=== PATIENT | male | born 1935 | race Caucasian/White ===

== ENCOUNTER → 2017-12-06 | Outpatient (CLI) | payer OTHER | LOC: CIMAGING 08:28 | PROVIDERS: ATTEND Internal Medicine | DX: R14.0 Abdominal distension (gaseous) (principal); K76.89 Other specified diseases of liver | CPT/HCPCS: 76700-PO ==

== ENCOUNTER → 2017-12-11 | Outpatient (CLI) | payer OTHER | LOC: CIMAGING 09:14 | PROVIDERS: ATTEND Internal Medicine | DX: R63.4 Abnormal weight loss (principal); R14.0 Abdominal distension (gaseous); R93.5 Abnormal findings on diagnostic imaging of other abdominal regions, including retroperitoneum | CPT/HCPCS: 74176-PO ==

== ENCOUNTER → 2018-01-04 | Outpatient (CLI) | payer OTHER | LOC: CIMAGING 15:14 | PROVIDERS: ATTEND Internal Medicine | DX: R05 Cough (principal) | CPT/HCPCS: 71046-PO ==

== ENCOUNTER 2018-01-15 07:41 | Inpatient (IN) | payer OTHER ==
[~2018-01-15 07:41] MED LIST: cefOXitin SODIUM 2 GM in STERILE WATER INJ 21 ML IV ONE
--- NOTE | 2018-01-15 08:11 | PDHPUP ---
History & Physical Update H&P update statement: This history and physical update is based on an assessment of the patient which was completed after admission or registration (within 24 hours), but prior to the surgery/procedure. H&P update: H&P reviewed & patient examined, no change in patient's condition since H&P completed (CTA reviewed. )
[2018-01-15] MEDS ORDERED: LIDOCAINE 1% 2 ML INJ ID PRN (08:17)
[2018-01-15] MEDS ORDERED: LR 1,000 ML IV ONE (08:17)
[2018-01-15 09:05] LABS: INR 1.03 (0.83-1.16); PROTIME(PATIENT) 13.7 SEC (12.0-15.0)
[2018-01-15] MEDS ORDERED: MIDAZOLAM 2 MG/2 ML VIAL IVP ONE (09:51)
[2018-01-15] MEDS ORDERED: MIDAZOLAM 2 MG/2 ML VIAL ONE (09:52)
--- NOTE | 2018-01-15 09:53 | PDANEPAE ---
ANE History of Present Illness retropertoneal mass ANE Past Medical History - Cardiovascular History Hx Hypertension: No Hx Arrhythmias: No Hx Chest Pain: No Hx Coronary Artery / Peripheral Vascular Disease: No Hx CHF / Valvular Disease: No Hx Palpitations: No - Pulmonary History Hx COPD: No Hx Asthma/Reactive Airway Disease: No Hx Recent Upper Respiratory Infection: No Hx Oxygen in Use at Home: No Hx Sleep Apnea: No Sleep Apnea Screening Result - Last Documented: Negative Pulmonary History Comment: occasional broncitis - Neurologic History Hx Cerebrovascular Accident: No Hx Seizures: No Hx Dementia: No - Endocrine History Hx Diabetes: No Hypothyroid: Yes - Renal History Hx Renal Disorders: No - Liver History Hx Hepatic Disorders: No - Neurological & Psychiatric Hx Hx Neurological and Psychiatric Disorders: No - Cancer History Hx Cancer: No - Congenital Disorder History Hx Congenital Disorders: No - GI History Hx Gastrointestinal Disorders: Yes Gastrointestinal History Comment: reflux - Other Health History Other Health History: none - Chronic Pain History Chronic Pain: Yes (lower back) - Surgical History Prior Surgeries: 2017 right hand ANE Review of Systems Review of Systems: - Exercise capacity METS (RN): 6 METS ANE Patient History - Allergies Allergies/Adverse Reactions: No Known Allergies Allergy (Verified 01/10/18 16:21) - Home Medications Home Medications: Levothyroxine 01/10/18 [Last Taken 01/15/18] Omeprazole 01/10/18 [Last Taken 01/15/18] - NPO status NPO Since - Liquids (Date): 01/14/18 NPO Since - Liquids (Time): 19:00 NPO Since - Solids (Date): 01/14/18 NPO Since - Solids (Time): 19:00 - Smoking Hx Smoking Status: Former smoker - Family Anes Hx Family Hx Anesthesia Complications: none ANE Labs/Vital Signs - Vital Signs Blood Pressure: 167/89 Heart Rate: 83 Respiratory Rate: 16 O2 Sat (%): 96 Height: 167.64 cm Weight: 54.431 kg ANE Physical Exam - Airway Neck exam: FROM Mallampati Score: Class 1 Mouth exam: normal dental/mouth exam - Pulmonary Pulmonary: no respiratory distress - Cardiovascular Cardiovascular: regular rate and rhythym - ASA Status ASA Status: II ANE Anesthesia Plan Anesthesia Plan: general endotracheal anesthesia, epidural
[2018-01-15] MEDS ORDERED: LIDOCAINE 2% 5 ML SDV ONE (09:56)
[2018-01-15] MEDS ORDERED: DEXAMETHASONE 4 MG/ML VIAL ONE (09:56)
[2018-01-15] MEDS ORDERED: ROPIVACAINE HCL 150 MG/30 ML INJ ONE (09:56)
[2018-01-15] MEDS ORDERED: ONDANSETRON 4 MG/2 ML VIAL ONE (09:56)
[2018-01-15] MEDS ORDERED: fentaNYL 100 MCG/2 ML INJ ONE ×2 (09:56)
[2018-01-15] MEDS ORDERED: ROCURONIUM 50 MG/5 ML VIAL ONE (09:56)
[2018-01-15] MEDS ORDERED: PROPOFOL 200 MG/20 ML VIAL ONE (09:57)
[2018-01-15] MEDS: BUPIVACAINE 0.5% 30 ML SDV ONE ×2 (10:57→13:12)
[2018-01-15] MEDS ORDERED: THROMBIN (BOVINE) 20,000 UNIT SPRAY TP ONE (11:46)
[2018-01-15] MEDS ORDERED: HYDROmorphONE/DILAUDID 1 MG/ML INJ IVP PRN (12:29)
[2018-01-15] MEDS ORDERED: PROMETHAZINE HCL 25 MG/ML INJ IVP PRN (12:29)
[2018-01-15] MEDS ORDERED: DEXAMETHASONE 4 MG/ML VIAL IVP PRN (12:29)
[2018-01-15] MEDS ORDERED: fentaNYL 100 MCG/2 ML INJ IVP PRN (12:29)
[2018-01-15] MEDS ORDERED: NALOXONE HCL 0.4 MG/ML INJ IVP PRN ×2 (12:29→12:33)
[2018-01-15] MEDS ORDERED: diphenhydrAMINE 25 MG CAP PO PRN (12:33)
[2018-01-15] MEDS ORDERED: fentaNYL 2MCG/ML/BUP 0.1% RTU 100 ML EP SCH (12:33)
[2018-01-15] MEDS ORDERED: NARCOTIC DRIP BAG-TOTAL ALL TYPES EP PRN (12:33)
[2018-01-15] MEDS ORDERED: ONDANSETRON 4 MG/2 ML VIAL IVP PRN ×2 (12:33→13:53)
--- NOTE | 2018-01-15 13:37 | POSTANESTH ---
Post Anesthetic Evaluation Cardiovascular Status: Normal, Stable Respiratory Status: Normal, Stable Level of Consciousness/Mental Status: Can Participate in Eval Pain Control: Adequate, Prn Tx Ordered Nausea/Vomiting Control: Adequate, Prn Tx Ordered Complications Possibly Related to Anesthesia: None Noted
[2018-01-15] MEDS: fentaNYL 200 MCG, BUPIVACAINE 0.5% 20 ML in NS 100 ML EP SCH (13:50)
--- NOTE | 2018-01-15 14:00 | POSTOPPROG ---
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 Findings: huge tumor taking up nearly entire abdomen. R kidney involved and spared. Adherent to vena cava and involving diaphragm. 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
[2018-01-15] MEDS ORDERED: ALBUMIN 5% 500 ML BOTTLE IV ONE (16:30)
[2018-01-15] MEDS ORDERED: ALBUMIN 5% 1,000 ML IV ONE (17:00)
--- NOTE | 2018-01-15 17:23 | SOAPPROG ---
SOAP Progress Note Assessment/Plan: Assessment: Postop resection of liposarcoma coma the retroperitoneum Vital signs stable with epidural in place/urine output marginal/labs pending/ wound okay Plan: Albumin bolus 01/15/18 17:21 Objective: Vital Signs Temp Pulse Resp BP Pulse Ox 36.3 C 103 H 22 H 95/59 L 96 01/15/18 16:00 01/15/18 16:00 01/15/18 16:00 01/15/18 16:00 01/15/18 16:00 Laboratory Results 01/15/18 16:45 01/14/18 01/15/18 01/16/18 05:59 05:59 05:59 Intake Total 2900 Output Total 475 Balance 2425 PT 13.7 SEC (12.0-15.0) 01/15/18 08:35 INR 1.03 (0.83-1.16) 01/15/18 08:35 ICD10 Worksheet Patient Problems: Problems Problem Status Onset Retroperitoneal liposarcoma Acute - ICD10 Problem Qualifiers (1) Retroperitoneal liposarcoma
[2018-01-15] MEDS ORDERED: TRANEXAMIC ACID 1,000 MG in NS (SYRINGE) 50 ML IV ONE (19:00)
--- NOTE | 2018-01-15 20:05 | SOAPPROG ---
SOAP Progress Note Assessment/Plan: Assessment: called by RN, patient clinically doing well. Repeated lab draw from non IV arm. h/H appropriate. Cancelled 2nd unit of PRBC Plan: 01/15/18 20:04 Objective: Vital Signs Temp Pulse Resp BP Pulse Ox 36.5 C 100 22 H 120/63 100 01/15/18 18:00 01/15/18 18:00 01/15/18 18:00 01/15/18 18:00 01/15/18 18:00 Laboratory Results 01/15/18 19:15 01/14/18 01/15/18 01/16/18 05:59 05:59 05:59 Intake Total 3365 Output Total 645 Balance 2720 PT 13.7 SEC (12.0-15.0) 01/15/18 08:35 INR 1.03 (0.83-1.16) 01/15/18 08:35 ICD10 Worksheet Patient Problems: Problems Problem Status Onset Retroperitoneal liposarcoma Acute
[2018-01-15] MEDS: NS W/ 20 KCl/L 1,000 ML IV SCH (23:39)
[2018-01-16] MEDS: fentaNYL 200 MCG, BUPIVACAINE 0.5% 20 ML in NS 100 ML EP SCH ×3 (01:27→23:19)
[2018-01-16] MEDS: ACETAMINOPHEN 325 MG TAB PO PRN ×3 (08:12→21:07)
[2018-01-16] MEDS: DC NARCS MISC SCH (08:15)
[2018-01-16] MEDS: REGARDING ANTICOAG MISC SCH (08:15)
--- NOTE | 2018-01-16 08:26 | SOAPPROG ---
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 POD#1. Doing well. Low H&H likely due to dilution. Good pain control with epidural. Continue benedict until its removal. D/c NGT. Low output, no N/V. +BS. Start clears. D/c chest tube. No air leak. Low output. CXR ok. Repeat chest xray later today. Final pathology pending. Dispo: medsurg. S: not much pain. difficulty talking with NGT in. No SOB. Not sure if passed flatus. O: alert, nad ng in place, mmm chest: ctab, no air leak cor: rrr abd: soft, inc well dressed. +BS ext: no edema. 01/16/18 08:25 Objective: Vital Signs Temp Pulse Resp BP Pulse Ox 37.3 C 90 19 107/71 96 01/16/18 06:00 01/16/18 06:00 01/16/18 06:00 01/16/18 06:00 01/16/18 06:00 Laboratory Results 01/16/18 05:30 01/16/18 05:30 01/15/18 01/16/18 01/17/18 05:59 05:59 05:59 Intake Total 5821 Output Total 1465 Balance 4356 PT 13.7 SEC (12.0-15.0) 01/15/18 08:35 INR 1.03 (0.83-1.16) 01/15/18 08:35 ICD10 Worksheet Patient Problems: Problems Problem Status Onset Retroperitoneal liposarcoma Acute
--- NOTE | 2018-01-16 11:12 | ASMTCASEMG ---
Living Arrangements What is your living Answers: With Spouse arrangement? Who do you live with? Type Of Residence What kind of residence do Answers: House you live in? Discharge Plan Comments Coordination Status Comments Notes: Patient is a 62yo male who has a large right retroperitoneal soft mass and was admitted for a resection of the mass. No therapies have been ordered at this time. D/C needs TBD. CM will follow. Date Signed: 01/16/2018 11:11 AM Electronically Signed By:Kaylynn Thao LCSW
--- NOTE | 2018-01-16 11:54 | GOP ---
[f rep st] OPERATIVE REPORT DATE OF OPERATION: 01/16/2018 SURGEON: Asael Otto MD PREOPERATIVE DIAGNOSIS: Possible tension pneumothorax. POSTOPERATIVE DIAGNOSIS: Possible tension pneumothorax. PROCEDURE PERFORMED: Right tube thoracostomy. FINDINGS: Patient was found to have no definite evidence of a tension pneumothorax, but his blood pr essure seemed to improve after placement of a right chest tube. DESCRIPTION OF PROCEDURE: Patient was prepped and draped in the usual sterile fashion. A short inci maria luisa was made in the 7th intercostal space in the anterior axillary line. Dissection extended up ove r the rib and through the intercostal space, and the right chest was entered. There was no gush of a ir or any obvious tension pneumothorax. A #28-Paragu[place] chest tube was introduced, connected to a Pleur -Evac drainage system, and secured to the exit site with 2-0 silk suture. There was no real evidence of any air leak despite the initial concerns. He tolerated the procedure well. There were no compl ications. /[id number]/MODL
--- NOTE | 2018-01-16 12:19 | GOP ---
[f rep st] OPERATIVE REPORT DATE OF OPERATION: 01/15/2018 SURGEON: Asael Otto MD OSTOMY NURSE: Maycol Christy MD, and KATLIN Barajas. ANESTHESIA: Dee Dee Metz MD. PREOPERATIVE DIAGNOSIS: Giant retroperitoneal mass. POSTOPERATIVE DIAGNOSIS: Low-grade liposarcoma. PROCEDURE PERFORMED: Resection of a retroperitoneal mass with a partial resection of the diaphragm and closure with a right renal pexy, a right cecal pexy. FINDINGS: Patient was found to have a 15-pound massive low-grade liposarcoma of the right flank. This had pushed all the abdominal structures across the midline into the left side of the abdomen except for the liver. Tumor was attached to the diaphragm behind the liver. It was partially compressing the vena cava and iliac veins and had completely rotated the right kidney over into the left abdomen. It did not directly invade the kidney, the liver, or the vena cava DESCRIPTION OF PROCEDURE: Patient was taken to the operating room where he received satisfactory general endotracheal anesthesia by Dr. Metz. He was prepped and draped in the usual sterile fashion. A large midline abdominal incision was made and carried from the sternum down to the suprapubic area. The abdomen was carefully entered through the linea alba. The abdomen findings were as noted above. the mass was exposed by freeing the right colon off the tumor with care to preserve the blood supply and then the mass was fully exposed. The mass was then tediously and carefully mobilized starting laterally; it was freed up as much as possible from the lateral abdominal wall and retroperitoneum ; dissected away from the adherence to the liver and gallbladder. It was dissected up out of the pelvis, as well, with care to avoid injury to the iliac vessels and was dissected up off the psoas muscle. This was all done with electrocautery and with the Harmonic Scalpel. The right kidney was then identified and was adherent to the mass, but not invaded by the mass. Gerota fascia over the kidney was removed, allowing the kidney to drop away from this mass, with preservation of the ureter and the vascularity to the renal hilum. The mass was then dissected up along the lateral border of the spine and along the lateral border of the vena cava. The right adrenal gland was identified and spared from removal. The dissection extended up underneath the liver to the diaphragm. Hemostasis was carefully obtained everywhere with 2-0 Vicryl ties, the Harmonic Scalpel, and electrocautery. At the diaphragm, the mass was removed with a piece of diaphragm until the entire mass could be removed. The diaphragm was then closed with a running #1 PDS suture, and a 28 chest tube was placed through this incision. The patient was Valsalva'd with evacuation of some air from the chest as the tube was removed and the sutures were tied down. Hemostasis was carefully obtained. The wound was copiously irrigated. Blood loss from the procedure was less than 200 cc. There were no complications. After removing this giant mass, which weighed nearly 15 pounds and measured over 40 cm, the abdominal contents were allowed to go back to their more natural position. The right kidney was pexed to adjacent tissues in the retroperitoneum to try to prevent any torsion of the kidney, and the right colon was pexed over the lateral abdominal wall to put it back into its normal position. The remainder of the abdominal contents were examined with no evidence of any metastatic disease or other findings. Abdomen was then closed using a running #1 PDS suture for the linea alba, reinforced periodically with # 1 Vicryl interrupted sutures. The skin was closed with skin cheri. He tolerated the procedure well. There were no complications Blood loss was less than 200 cc. /[id number]/MODL MTDD
--- NOTE | 2018-01-16 14:13 | SOAPPROG ---
SOAP Progress Note Assessment/Plan: Assessment: Postop resection of liposarcoma coma the retroperitoneum Vital signs stable with epidural in place/urine output marginal/labs pending/ wound okay Plan: Albumin bolus 01/15/18 17:21 01/16/18 14:11 Vital signs stable/afebrile/doing very well Abdomen soft, nontender/wound okay/decreased bowel sounds Hematocrit stable Urine output improved/no air leak on the chest tube/minimal NG output Plan DC NG and chest tube in transfer to [facility] Objective: Vital Signs Temp Pulse Resp BP Pulse Ox 37.3 C 90 19 107/71 96 01/16/18 06:00 01/16/18 06:00 01/16/18 06:00 01/16/18 06:00 01/16/18 06:00 Laboratory Results 01/16/18 05:30 01/16/18 05:30 01/15/18 01/16/18 01/17/18 05:59 05:59 05:59 Intake Total 5821 Output Total 1465 Balance 4356 PT 13.7 SEC (12.0-15.0) 01/15/18 08:35 INR 1.03 (0.83-1.16) 01/15/18 08:35 ICD10 Worksheet Patient Problems: Problems Problem Status Onset Retroperitoneal liposarcoma Acute - ICD10 Problem Qualifiers (1) Retroperitoneal liposarcoma
[2018-01-16 23:50] LABS: PLATELET COUNT 111 10^3/uL (150-400)
[2018-01-17] MEDS: NS W/ 20 KCl/L 1,000 ML IV SCH ×3 (05:01→20:53)
--- NOTE | 2018-01-17 09:38 | SOAPPROG ---
SOAP Progress Note Assessment/Plan: Assessment: Postop resection of liposarcoma coma the retroperitoneum Vital signs stable with epidural in place/urine output marginal/labs pending/ wound okay Plan: Albumin bolus 01/15/18 17:21 01/16/18 14:11 Vital signs stable/afebrile/doing very well Abdomen soft, nontender/wound okay/decreased bowel sounds Hematocrit stable Urine output improved/no air leak on the chest tube/minimal NG output Plan DC NG and chest tube in transfer to [facility] 01/17/18 09:34 VS STABLE BUT TEMP 101 LAST PM/ AFEBRILE NOW/ ABD SOFT, MINIMALLY TENDER/ WOUND OK/ UO OK/ HCT STABLE Objective: Vital Signs Temp Pulse Resp BP Pulse Ox 36.8 C 84 18 118/59 L 99 01/17/18 07:34 01/17/18 07:34 01/17/18 07:34 01/17/18 07:34 01/17/18 07:34 Laboratory Results 01/16/18 23:40 01/16/18 23:40 01/16/18 01/17/18 01/18/18 05:59 05:59 05:59 Intake Total 5821 3456 Output Total 1465 2100 Balance 4356 1356 PT 13.7 SEC (12.0-15.0) 01/15/18 08:35 INR 1.03 (0.83-1.16) 01/15/18 08:35 ICD10 Worksheet Patient Problems: Problems Problem Status Onset Retroperitoneal liposarcoma Acute - ICD10 Problem Qualifiers (1) Retroperitoneal liposarcoma
[2018-01-17] MEDS ORDERED: BISACODYL 10 MG SUPP PR PRN (09:39)
[2018-01-17] MEDS: REGARDING ANTICOAG MISC SCH (09:53)
[2018-01-17] MEDS: DC NARCS MISC SCH (09:53)
--- NOTE | 2018-01-17 11:13 | ASMTCMCOM ---
CM Note CM Note Notes: OT/PT have been ordered for the patient. Awaiting results of evals to determine d/c plan. CM will follow. Date Signed: 01/17/2018 11:13 AM Electronically Signed By:Kaylynn Thao LCSW
[2018-01-17] MEDS: METOCLOPRAMIDE 10 MG/2 ML VIAL IVP SCH ×3 (11:19→23:11)
[2018-01-17] MEDS: HEPARIN 5,000 UNIT/0.5 ML SYR SC SCH ×2 (13:25→20:54)
[2018-01-17] MEDS: fentaNYL 200 MCG, BUPIVACAINE 0.5% 20 ML in NS 100 ML EP SCH (13:29)
--- NOTE | 2018-01-17 15:57 | POSTANESTH ---
Post Anesthetic Evaluation Cardiovascular Status: Normal, Stable Respiratory Status: Normal, Stable Level of Consciousness/Mental Status: Can Participate in Eval Pain Control: Inadeq, Add Tx Required Nausea/Vomiting Control: Adequate, Prn Tx Ordered Notes: Called to see patient for epidural pump malfunction (occlusion alarm). Epidural flushed easily with NS sterile. Then a 10 ml bolus of 0.25 bupicaine given for increased pain and basal rate increased to 8 ml/hr.
--- NOTE | 2018-01-17 21:11 | GCON ---
[f rep st] CONSULTATION ONCOLOGY CONSULT REFERRING PHYSICIAN: Asael Otto MD REASON FOR REQUEST: Liposarcoma. HISTORY OF PRESENT ILLNESS: Mr. Srivastava is an 82-year-old, previously healthy gentleman who over the last 4 years has noted an increasing abdominal girth. He had no pain, nausea, vomiting, and he has been very active. He may have been having a little more trouble taking a deep breath and was having early satiety. CT scan was performed that showed a large abdominal mass that appeared to be a fat containing tumor that was displacing the right kidney to the left side of the abdomen. He underwent surgical resection and is slowly recovering. Still not passing gas, been able to eat yet. His , who is also a physician, is with him. His pain is under good control. ALLERGIES: No known drug allergies. HOME MEDICATIONS: Included omeprazole and levothyroxine. CHRONIC ILLNESSES: Includes hypothyroidism and gastroesophageal reflux. SURGICAL HISTORY: Includes inguinal hernia repair and Dupuytren's surgery on his hands. SOCIAL HISTORY: Drinks alcohol occasionally, does not smoke, use illicit drugs. He is . 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 FAMILY HISTORY: They have 2 children in good health. Mother at age 92. Father age 62 with an CA. No history of cancer in the family. REVIEW OF SYSTEMS: 10-point review of systems performed. Pertinent positives HPI, otherwise negative. PHYSICAL EXAM: VITAL SIGNS: Temperature is 36.8, pulse 100, blood pressure 136 /67. GENERAL: He is a well-appearing elderly man in no distress. HEENT: Unremarkable. LUNGS: Clear. CARDIAC: Regular. ABDOMEN: Mildly distended, soft. Bowel sounds are decreased. Midline incision shows no signs of infection. NEUROLOGIC: Grossly intact. RADIOLOGY: Abdominal x-ray today showed a moderately diffuse distention of small bowel loops, suggestive of ileus. Abdominal CT, which I reviewed with the radiologist, showed low-grade retroperitoneal liposarcoma versus benign lipoma versus gigantic renal myelolipoma. It measured 26 x 24 x 24 cm. Pathology showed a well-differentiated liposarcoma/atypical lipomatous tumor. Margins were likely involved, but no evidence of dedifferentiation. The greatest dimension is 33 cm. The mitotic rate was near 0, grade 1. It was staged as a T4 N0. IMPRESSION: Large liposarcoma, surgically resected: This appears to be low risk and has been slowly growing probably for a while. Using the online nomogram for retroperitoneal soft tissue sarcoma he has probably about IMPRESSION AND PLAN: Well-differentiated liposarcoma, surgically resected. The online nomogram through [facility] estimates about a 50%, 7 year overall survival from this. The margins probably are positive and adjuvant radiation may lower the risk of local recurrence, but does not appear to have much of an effect on overall survival. Right now there is not a clear role for adjuvant chemotherapy in this situation. I can look to see if there is any study that may be available, but the patient keeps reporting that he is years old and does not want to be really aggressive. RECOMMENDATION: I would like to follow him up in about 1-2 weeks to review the final path and determine a followup going forward. I appreciate seeing him in consultation. /[id number]/MODL and [id number]/MODL [facility]ITAL[facility]
[2018-01-18] MEDS: fentaNYL 200 MCG, BUPIVACAINE 0.5% 20 ML in NS 100 ML EP SCH (01:58)
[2018-01-18] MEDS: NS W/ 20 KCl/L 1,000 ML IV SCH ×3 (04:52→23:36)
[2018-01-18] MEDS: HEPARIN 5,000 UNIT/0.5 ML SYR SC SCH ×3 (06:19→23:38)
[2018-01-18] MEDS: METOCLOPRAMIDE 10 MG/2 ML VIAL IVP SCH ×3 (06:20→17:04)
--- NOTE | 2018-01-18 07:43 | SOAPPROG ---
SOAP Progress Note Assessment/Plan: Assessment: S/p resection of liposarcoma of the retroperitoneum 01/15 S: Doing well today. Passing some flatus and small bowel movements. O: Alert NAD Low grade fever: 99.6 H&H stable Abdomen: soft, hypoactive bowel sounds. Some tenderness Chest xray yesterday shows some atelectasis Plan: Plan to remove epidural catheter today. D/c benedict as well. Get OOB with PT. Start clear liquids, then advance as tolerated. Continue using IS regularly. 01/18/18 07:44 Objective: Vital Signs Temp Pulse Resp BP Pulse Ox 37.6 C 93 16 129/62 H 95 01/17/18 23:07 01/17/18 23:07 01/17/18 23:07 01/17/18 23:07 01/17/18 23:07 Laboratory Results 01/16/18 23:40 01/16/18 23:40 01/17/18 01/18/18 01/19/18 05:59 05:59 05:59 Intake Total 3456 4084 Output Total 2100 1400 Balance 1356 2684 PT 13.7 SEC (12.0-15.0) 01/15/18 08:35 INR 1.03 (0.83-1.16) 01/15/18 08:35 ICD10 Worksheet Patient Problems: Problems Problem Status Onset Retroperitoneal liposarcoma Acute
--- NOTE | 2018-01-18 08:45 | SOAPPROG ---
SOAP Progress Note Assessment/Plan: Assessment: Postop resection of liposarcoma coma the retroperitoneum Vital signs stable with epidural in place/urine output marginal/labs pending/ wound okay Plan: Albumin bolus 01/15/18 17:21 01/16/18 14:11 Vital signs stable/afebrile/doing very well Abdomen soft, nontender/wound okay/decreased bowel sounds Hematocrit stable Urine output improved/no air leak on the chest tube/minimal NG output Plan DC NG and chest tube in transfer to [facility] 01/17/18 09:34 VS STABLE BUT TEMP 101 LAST PM/ AFEBRILE NOW/ ABD SOFT, MINIMALLY TENDER/ WOUND OK/ UO OK/ HCT STABLE 01/18/18 08:43 AFEBRILE/ WOUND OK/ ABD SOFT/ VS STABLE/ +FLATUS AND SMALL BM/ 2-WAY= ILEUS/ CXR= ATELECTASIS PLAN CLEARS AND ADVANCE Objective: Vital Signs Temp Pulse Resp BP Pulse Ox 37.3 C 81 24 H 102/52 L 94 01/18/18 08:00 01/18/18 08:00 01/18/18 08:00 01/18/18 08:00 01/18/18 08:00 Laboratory Results 01/16/18 23:40 01/16/18 23:40 01/17/18 01/18/18 01/19/18 05:59 05:59 05:59 Intake Total 3456 4084 Output Total 2100 1400 Balance 1356 2684 PT 13.7 SEC (12.0-15.0) 01/15/18 08:35 INR 1.03 (0.83-1.16) 01/15/18 08:35 ICD10 Worksheet Patient Problems: Problems Problem Status Onset Retroperitoneal liposarcoma Acute - ICD10 Problem Qualifiers (1) Retroperitoneal liposarcoma
[2018-01-18] MEDS: REGARDING ANTICOAG MISC SCH (09:00)
[2018-01-18] MEDS: DC NARCS MISC SCH (09:00)
[2018-01-18] MEDS ORDERED: morphINE PCA 30 MG/30 ML PCA IV PRN (12:04)
[2018-01-18] MEDS ORDERED: NALOXONE HCL 0.4 MG/ML INJ IVP PRN ×2 (12:04→16:25)
--- NOTE | 2018-01-18 12:12 | ASMTCMCOM ---
CM Note CM Note Notes: Patient is improving. Plan to remove epidural catheter today and d/c the benedict as well. Patient has not been ready for therapies yet, but hopefully can work with PT today. CM will follow. Date Signed: 01/18/2018 12:11 PM Electronically Signed By:Kaylynn Thao LCSW
[2018-01-18] MEDS ORDERED: HYDROmorphONE/DILAUDID 6 MG/30 ML PCA IV PRN (16:25)
--- NOTE | 2018-01-18 17:33 | CPEKG ---
Heart Rate: 160 RR Interval: 375 P-R Interval: 92 QRSD Interval: 146 QT Interval: 256 QTC Interval: 418 P [place]: 0 QRS [place]: 262 T Wave [place]: 44 EKG Severity - ABNORMAL ECG - EKG Impression: Supraventricular tachycardia with aberrancy Electronically Signed By: Sergio Patel 19-Jan-2018 07:26:37
[2018-01-18] MEDS ORDERED: ACETAMINOPHEN 650 MG SUPP PR ONE (17:42)
[2018-01-18] MEDS: ACETAMINOPHEN 325 MG TAB PO PRN (17:55)
[2018-01-18] MEDS ORDERED: IOPAMIDOL (ISOVUE-300) 100 ML BTL ONE (18:03)
[2018-01-18] MEDS ORDERED: ERTAPENEM 1 GM VIAL IV SCH (19:00)
[2018-01-18] MEDS ORDERED: DEXMEDETOMIDINE IN 0.9 % NACL 50 ML IV SCH (19:00)
--- NOTE | 2018-01-18 19:32 | SOAPPROG ---
SOAP Progress Note Assessment/Plan: Assessment: Postop resection of liposarcoma coma the retroperitoneum Vital signs stable with epidural in place/urine output marginal/labs pending/ wound okay Plan: Albumin bolus 01/15/18 17:21 01/16/18 14:11 Vital signs stable/afebrile/doing very well Abdomen soft, nontender/wound okay/decreased bowel sounds Hematocrit stable Urine output improved/no air leak on the chest tube/minimal NG output Plan DC NG and chest tube in transfer to [facility] 01/17/18 09:34 VS STABLE BUT TEMP 101 LAST PM/ AFEBRILE NOW/ ABD SOFT, MINIMALLY TENDER/ WOUND OK/ UO OK/ HCT STABLE 01/18/18 08:43 AFEBRILE/ WOUND OK/ ABD SOFT/ VS STABLE/ +FLATUS AND SMALL BM/ 2-WAY= ILEUS/ CXR= ATELECTASIS PLAN CLEARS AND ADVANCE 01/18/18 19:29 Developed severe abdominal pain tonight after discontinuation is epidural resulting in tachycardia and hypertension/WBC is normal/hematocrit stable Emergency CT scan done shows some residual free air as we have seen on his x- rays, right pleural effusion and atelectasis and ileus as we have seen on his x- rays No obvious abdominal crises, both kidneys are functioning perfectly but his colon and small bowel are very distended Will replace Finn and NG and start Precedex drip to supplement his pain control /check lactic acid/monitor his temperature and tachycardia Laparotomy if not improving but I think this is all a serous pain reaction to a gigantic incision and the discontinuation of his epidural pain relief/will follow closely Objective: Vital Signs Temp Pulse Resp BP Pulse Ox 103.3 C H 138 H 33 H 136/59 H 95 01/18/18 18:29 01/18/18 18:29 01/18/18 18:29 01/18/18 18:29 01/18/18 18:29 Laboratory Results 01/18/18 17:35 01/18/18 17:35 01/17/18 01/18/18 01/19/18 05:59 05:59 05:59 Intake Total 3456 4084 1476 Output Total 2100 1400 725 Balance 1356 2684 751 PT 13.7 SEC (12.0-15.0) 01/15/18 08:35 INR 1.03 (0.83-1.16) 01/15/18 08:35 ICD10 Worksheet Patient Problems: Problems Problem Status Onset Retroperitoneal liposarcoma Acute - ICD10 Problem Qualifiers (1) Retroperitoneal liposarcoma
[2018-01-18] MEDS ORDERED: BISACODYL 10 MG SUPP PR PRN (21:28)
[2018-01-18] MEDS ORDERED: fentanYL/NACL/100 ML BAG IV ONE (23:59)
[2018-01-19] MEDS ORDERED: PROPOFOL/EMULSION 1,000 MG/100 ML BOTTLE IV ONE
[2018-01-19] MEDS ORDERED: fentaNYL/NACL 100 ML IV SCH ×2 (00:06→00:30)
[2018-01-19] MEDS ORDERED: PROPOFOL/EMULSION 100 ML IV SCH ×2 (00:06→00:30)
[2018-01-19] MEDS ORDERED: VANCOMYCIN 1 GM in NS 250 ML IV ONE (00:15)
[2018-01-19] MEDS ORDERED: MIDAZOLAM 2 MG/2 ML VIAL ONE (00:24)
[2018-01-19] MEDS ORDERED: fentaNYL 100 MCG/2 ML INJ ONE (00:25)
[2018-01-19] MEDS ORDERED: ETOMIDATE 40 MG/20 ML INJ ONE (00:25)
[2018-01-19] MEDS ORDERED: ETOMIDATE 40 MG/20 ML INJ IV ONE (00:30)
[2018-01-19] MEDS ORDERED: fentaNYL 100 MCG/2 ML INJ IVP ONE (00:30)
[2018-01-19] MEDS ORDERED: MIDAZOLAM 2 MG/2 ML VIAL IVP ONE ×2 (00:30→00:35)
[2018-01-19] MEDS ORDERED: ALTEPLASE 2 MG VIAL IVP PRN (00:31)
[2018-01-19] MEDS: METOCLOPRAMIDE 10 MG/2 ML VIAL IVP SCH (00:46)
[2018-01-19] MEDS ORDERED: NOREPINEPHRINE BITARTRATE 4 MG in D5W 500 ML IV SCH (01:30)
[2018-01-19] MEDS ORDERED: NOREPINEPHRINE BITARTRATE 4 MG in D5W 500 ML IV PRN (01:30)
[2018-01-19 04:05] VITALS: BP 125/76; PULSE 105; RESP 28; TEMP 102.6; O2SAT 97
[2018-01-19] MEDS ORDERED: ATROPINE SULFATE 1 MG/10 ML SYR ONE (04:35)
--- NOTE | 2018-01-19 06:58 | GCON ---
[f rep st] CONSULTATION CRITICAL CARE CONSULTATION DATE OF CONSULTATION: 01/19/2018 HISTORY OF PRESENT ILLNESS: This patient is an 82-year-old male with a history of reflux disease, hy pothyroidism, and benign prostatic hypertrophy, who presented to his outpatient PCP with increasing a bdominal girth over several months to potentially years. 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 He was seen by Dr. 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 The surgery itself was fairly uncomplicated though there was involvement of the right hem idiaphragm requiring a chest tube for in the immediate period. He otherwise did quite well. His epi dural catheter was removed today, and his status was downgraded to Med/Surg. In any case, his blood pressure was quite high following the removal of the catheter and pain control was somewhat difficult ,. Complicating the situation was that his oxygen saturation was normal on only 2 L nasal cannula thi s morning and about 5:30 this evening, it jumped up to a 15 L non-rebreather. He continued to have s evere pain and was evaluated by Dr. Otto. An abdominal CT scan revealed postoperative changes. The re is free air, but he thought this was proportional to his recent surgery. His lactate level was 1. 5 and his hematocrit was stable in the upper 30s. I was called shortly before this dictation because of worsening oxygen saturation and respiratory rate. He was breathing about 45 times per minute, wa s awake and did squeeze my hand, but was nonverbal and really was quite tachypneic. His was at the bedside asking many questions throughout the exam. I was quite concerned about pain control. He had started a Precedex drip about 2 hours before I had gotten here, which had little effect on his p ain and shortly after my arrival, his blood pressure did drop to about 60/40. This recovered quickly with a small amount of IV fluids, which is still running at this time. A blood gas showed a pH 7.5 with a pCO2 of about 20 with a pO2 of about 70, but a bicarb of 17. This was 22 earlier in the day. His lactate had gone up now to 2.7. REVIEW OF SYSTEMS: Otherwise noncontributory. PAST MEDICAL HISTORY: Gastroesophageal reflux disease, Dupuytren's contractures, hyperlipidemia, hyp othyroidism, BPH, and vitamin D deficiency. PAST SURGICAL HISTORY: Prostate surgery, hand surgery and hernia repair, and the most recent liposar coma resection. FAMILY HISTORY: Coronary artery disease. SOCIAL HISTORY: Remote tobacco. CURRENT MEDICATIONS: Tylenol Dulcolax, Precedex, Benadryl, Invanz, subcu heparin, Dilaudid FRONT DESK MONITOR, Regl an, Zofran and normal saline with 20 potassium. PHYSICAL EXAMINATION: VITAL SIGNS: On my arrival, his T-max was 39.7, that was about 1745, T-curren t 39.4, with a blood pressure about 93/49, heart rate of 132, it looks like sinus tachycardia, it is hard to tell. Respirations about 40. Oxygen saturation was 90% to 91% on a 100% non-rebreather as w ell as nasal cannula at 6 L/minute. GENERAL: He was a thin and somewhat cachectic appearing with his eyes closed. He followed commands but was nonverbal and clearly in moderate to severe respiratory d istress. Pupils were equally round and reactive to light. Nonicteric and noninjected. Mucous membra kailey were moist. He had an NG tube in place. NECK: Supple without obvious adenopathy or jugular vei n distention. LUNGS: Breath sounds were diminished but clear to auscultation bilaterally without whee zes, rubs or rales. CARDIAC: Heart appeared to have a regular rate and rhythm without murmurs, rubs, gallops. ABDOMEN: Abdomen was markedly distended and firm and very tender to touch, even with the stethoscope, with no bowel tones. His midline incision dressing was clean and dry, without evidence of leak or bleed. EXTREMITIES: Extremities show no clubbing, cyanosis, or edema. NEUROLOGIC: Nonfoc al, including cranial nerves. SKIN: Warm and dry without diaphoresis or rash. OBJECTIVE DATA: White count of 4.86. This was drawn at 1735, which dropped from 10.1 on 01/16. Hem atocrit has been stable and is now 38. Platelets were drawn also at 1735 and were 162. Blood gas was 7.51, pCO2 21, pO2 76, bicarb 17, oxygen saturation 97% with a base excess amount of 0.42 and a lact ate of 2.7. That was on a venous blood gas 1.5 at 1926 earlier. His basic metabolic panel was fairly unremarkable save for a potassium of 5.0. LFTs were normal. Albumin was 2.6. Chest x-ray shows atelectasis with some right-sided effusion, free air to the bilateral diaphragms. ASSESSMENT AND PLAN: 1. Hypoxic respiratory failure. Though he does have respiratory alkalosis, which certainly would be consistent with his significant pain since the loss of his epidural cathete, the amount of oxygen to maintain a pO2 of 76 is excessive and his respiratory rate is unacceptable. I think that he is very likely to have a respiratory arrest if we do not intervene at this time. Subsequently, he was intub ated on the first attempt using a GlideScope and a 7.5 endotracheal tube. This is dictated separatel y. We maintained his oxygen saturation throughout. I think the likelihood of pulmonary embolism is very, very low since he has been on subcu heparin as well as SCDs. I do not see evidence of pneumoni a, though I am quite concerned about the high fever and what appears to be atelectasis and mild effus ion on the right side. I do not think he has an underlying lung disease, so they do not think bronch odilators would be useful nor do I think bronchoscopy would as well. At this point, from a respirato ry status, just maintain him on the ventilator. Recheck a chest x-ray to make sure the tube is in go od position. 2. Peritonitis. The high fever is quite concerning to me as is the rising lactate. Dr. Otto is aw are of this. I spoke to him myself earlier. His hematocrit is quite stable. It is possible there i s perforation. I gave him a dose of vancomycin in addition to the Invanz. We will check some blood cultures and keep a close eye on his blood pressure. He may need central access in the near future. We will also look at a bladder pressure to make sure he does not have abdominal compression syndrome . TIME SPENT: A total of 60 minutes of critical care time was required, separate from procedures, in t he evaluation and management of this patient with severe illness. /[id number]/MODL
--- NOTE | 2018-01-19 06:58 | GPN ---
[f rep st] PROCEDURE NOTE DATE OF PROCEDURE: 01/19/2018 PROCEDURE PERFORMED: Emergent intubation. INDICATION: Hypoxic respiratory failure. CONSENT: Consent was waived due to the nature of the procedure, though I did discuss with the claudia wu to proceeding. ANESTHESIA: Conscious sedation was achieved using a total of 2 mg IV Versed, 40 mg of IV etomidate, and 50 mcg of IV fentanyl. The patient tolerated these well without obvious complication. DESCRIPTION OF PROCEDURE: A 7.5 endotracheal tube was easily passed through normal-appearing vocal c ords on the first attempt using a MAC-4 GlideScope without difficulty. There was appropriate tube co ndensation, color change on capnography as well as chest rise. Oxygen saturations were above 95% thr oughout the procedure and a postprocedure chest x-ray is pending at this time. There were no obvious complications. /[id number]/MODL
[2018-01-19] MEDS ORDERED: CHLORHEXIDINE GLUCONATE 15 ML UDL PO SCH (08:00)
[2018-01-19] MEDS ORDERED: FAMOTIDINE 20 MG/NACL 50 ML IV SCH (09:00)
== END 2018-01-19 09:46 | disposition expired | DRG 829 ==
LOC: F3E 07:41 → F2N 15:00
PROVIDERS: ADMIT Surgery; ATTEND Surgery
PROC: 0TS Urinary System, Reposition (ICD-10-PCS; principal; 2018-01-15 09:15)
PROC: 0WBH0ZX Excision of Retroperitoneum, Open Approach, Diagnostic (ICD-10-PCS; principal; 2018-01-15 09:15)
PROC: 0BBT0ZX Excision of Diaphragm, Open Approach, Diagnostic (ICD-10-PCS; principal; 2018-01-15 09:15)
PROC: 30233N1 Transfusion of Nonautologous Red Blood Cells into Peripheral Vein, Percutaneous Approach (ICD-10-PCS; principal; 2018-01-15 09:15)
PROC: 0DSE0ZZ Reposition Large Intestine, Open Approach (ICD-10-PCS; principal; 2018-01-15 09:15)
PROC: 0W9930Z Drainage of Right Pleural Cavity with Drainage Device, Percutaneous Approach (ICD-10-PCS; 2018-01-16)
PROC: 0BH18EZ Insertion of Endotracheal Airway into Trachea, Via Natural or Artificial Opening Endoscopic (ICD-10-PCS; 2018-01-19)
PROC: 5A1935Z Respiratory Ventilation, Less than 24 Consecutive Hours (ICD-10-PCS; 2018-01-19)
DX: C48.0 Malignant neoplasm of retroperitoneum (principal); J96.91 Respiratory failure, unspecified with hypoxia; J98.11 Atelectasis; I87.1 Compression of vein; K21.9 Gastro-esophageal reflux disease without esophagitis; E03.9 Hypothyroidism, unspecified; E55.9 Vitamin D deficiency, unspecified; N40.0 Benign prostatic hyperplasia without lower urinary tract symptoms
CPT/HCPCS: 97116-GP; 97161-GP; J0461; J0694; J1100; J1170; J1335; J1644; J2250; J2270; J2405; J2704; J2765; J2795; J3010; J3370; P9016; P9041; Q9967